=== PATIENT | female | born 1930 | race Caucasian/White ===

== ENCOUNTER 2016-06-11 23:49 | Emergency (ER) | payer MEDICARE ==
[2016-06-12] MEDS ORDERED: SODIUM CHLORIDE 0.9% 1,000 ML IV ONE (00:05)
[2016-06-12] MEDS ORDERED: diphenhydrAMINE INJ 50 MG/ML VIAL IVP STA (00:06)
[2016-06-12] MEDS ORDERED: methylPREDNISolone SUCCINATE 125 MG/2 ML VIAL IVP STA (00:06)
[2016-06-12] MEDS ORDERED: FAMOTIDINE 20 MG/2 ML VIAL IVP STA (00:07)
[2016-06-12] MEDS ORDERED: diphenhydrAMINE INJ 50 MG/ML VIAL ONE (00:10)
[2016-06-12] MEDS ORDERED: FAMOTIDINE 20 MG/50 ML 50 ML IV ONE (00:11)
[2016-06-12] MEDS ORDERED: methylPREDNISolone SUCCINATE 125 MG/2 ML VIAL IVP ONE (00:11)
== END 2016-06-12 01:57 | disposition home or self-care (01) ==
DX: L27.0 Generalized skin eruption due to drugs and medicaments taken internally (principal); R10.9 Unspecified abdominal pain; T37.0X5A Adverse effect of sulfonamides, initial encounter

== ENCOUNTER 2017-07-18 12:29 | Outpatient (CLI) | payer MEDICARE ==
--- NOTE | 2017-07-18 16:26 | CT Report ---
NONCONTRAST HEAD CT: 07/18/2017 COMPARISON: None. INDICATION: Facial weakness and stumbling for 2 months. TECHNIQUE: Noncontrast axial imaging of the head was performed with coronal reformat. FINDINGS: Age-appropriate volume loss and ex vacuo dilation of the ventricles. No evidence of acute intracranial hemorrhage or mass. No midline shift. No abnormal fluid collections. The paranasal sinuses and mastoid air cells appear well aerated. Soft tissues and orbits appear unremarkable apart from postoperative changes of the orbits. IMPRESSION: NO EVIDENCE OF ACUTE INTRACRANIAL PROCESS. In accordance with CT protocol optimization, one or more of the following dose reduction techniques were utilized for this exam: automated exposure control, adjustment of mA and/or KV based on patient size, or use of iterative reconstructive technique. TD: 07/18/2017 16:24 MTDD
== END 2017-07-18 12:30 | disposition home or self-care (01) ==
LOC: DI 12:29
PROVIDERS: ATTEND Family Medicine
DX: R26.81 Unsteadiness on feet (principal); R53.1 Weakness; R29.810 Facial weakness
CPT/HCPCS: 70450

== ENCOUNTER 2017-10-24 18:42 | Outpatient (CLI) | payer MEDICARE ==
--- NOTE | 2017-10-25 08:54 | Ultrasound Report ---
Procedure Date: 10/24/2017 Accession Number: [id number] / [id number] Procedure: US - Duplex Ext Veins Left CPT Code: FULL RESULT: EXAM: LEFT LOWER EXTREMITY VENOUS ULTRASOUND EXAM DATE: 10/24/2017 07:46 PM. CLINICAL HISTORY: LOCALIZED EDEMA. COMPARISON: None. TECHNIQUE: Real-time sonographic vascular imaging was performed by the medicine technologist through the lower extremity utilizing both color-flow and Doppler spectral analysis. Multiple home furnishings sales representative static images were saved for review. FINDINGS: Common Femoral Vein (CFV): Normal. CFV-GSV Junction: Normal. Profunda Femoral Vein (PFV): Normal. Femoral Vein (FV) Prox: Normal. Femoral Vein (FV) Mid: Normal. Femoral Vein (FV) Dist: Normal. Popliteal Vein: Normal. Posterior Tibial Veins/Peroneal Veins: Not optimally visualized. No thrombus demonstrated. Contralateral Side CFV: Normal. Other: Evidence of mild subcutaneous soft tissue edema of the calf. IMPRESSION: 1. No evidence for left lower extremity deep venous thrombosis. 2. Evidence of mild subcutaneous soft tissue edema of the calf. [facility]
== END 2017-10-24 18:43 | disposition home or self-care (01) ==
LOC: DI 18:42
PROVIDERS: ATTEND Internal Medicine
DX: R60.0 Localized edema (principal)